=== PATIENT | male | born 1980 | race Asian ===

== ENCOUNTER 2020-03-26 22:28 | Emergency (ER) | payer MEDICAID ==
[~2020-03-26] VITALS: Ht 172.7 cm; Wt 69.9 kg
[2020-03-26 22:45] VITALS: BP 125/89
[2020-03-26] MEDS ORDERED: HYDROcodone/Acetamin 5/325 tab ORAL ONE (23:30)
[2020-03-27] MEDS ORDERED: NORCO 5-325 TA1 EAC1 ORAL (00:41)
[2020-03-27] MEDS ORDERED: IBUPROFEN600 M1 ORAL (00:41)
[2020-03-27 00:50] VITALS: BP 123/76
--- NOTE | 2020-03-27 03:37 | Emergency Room Report ---
History of Present Illness General Chief Complaint: Multiple Trauma/Fall Source: Patient Present Illness HPI 39-year-old male here with right foot pain. Patient says that he jumped off a 6 foot ledge and landed on his feet but says that he landed mostly on his right foot. Stuart immediate pain in his right heel and right ankle. Never fell or hit his head or had loss of consciousness. Denies back pain or focal numbness or weakness. Has not taken any medication for the pain since the incident happened about an hour prior to coming to the emergency department. Pain is located in the right heel and right ankle and does not otherwise radiate. Allergies: Coded Allergies: No Known Allergies (Unverified , 03/26/20) COVID-19 Screening Contact w/high risk pt: No Experienced COVID-19 symptoms?: No COVID-19 Testing performed SELF STORAGE MANAGER: No Nursing Documentation-[facility] Past Medical History: No Stated History Review of Systems All Other Systems: negative except mentioned in HPI Physical Exam Vital Signs Date Time Temp Pulse Resp B/P (MAP) Pulse Ox O2 Delivery O2 Flow Rate FiO2 03/26/20 22:38 98.2 93 20 122/81 (95) 99 Room Air Sp02 EP Interpretation: reviewed, normal General Appearance: no apparent distress, alert, non-toxic Head: normocephalic, atraumatic Eyes: bilateral eye normal inspection, bilateral eye PERRL ENT: hearing grossly normal, normal pharynx, no angioedema, normal voice Neck: full range of motion, supple/symm/no masses Respiratory: chest non-tender, lungs clear, normal breath sounds, speaking full sentences Cardiovascular #1: regular rate, rhythm, no edema Cardiovascular #2: 2+ carotid (R), 2+ carotid (L), 2+ radial (R), 2+ radial (L), 2+ dorsalis pedis (R), 2+ dorsalis pedis (L) Gastrointestinal: normal bowel sounds, non tender, soft, non-distended, no guarding, no rebound Rectal: deferred Genitourinary: normal inspection, no CVA tenderness Musculoskeletal: back normal, other - Severe tenderness on palpation of the right calcaneus and right lateral malleolus with moderate diffuse swelling of the right ankle. DP and PT pulses intact. Normal capillary refill of the right toes. No back pain Neurologic: alert, motor strength/tone normal, sensory intact, responsive, speech normal Psychiatric: judgement/insight normal, memory normal, mood/affect normal, no suicidal/homicidal ideation Lymphatic: no adenopathy Medical Decision Making Diagnostic Impression: Primary Impression: Calcaneus fracture, right Additional Impression: Fibula fracture ER Course X-ray right foot: Linear transverse calcaneal fracture X-ray right ankle: Nondisplaced distal fibular fracture Splint: Short-leg post mold and sugar tong splint placed on the right foot and right ankle. Patient was neurovascularly intact before and after the splint was placed 39-year-old male here with right foot pain after jumping off of a 6 foot ledge. Patient had no back pain whatsoever on palpation and range of motion. He had no focal numbness or weakness. Imaging of the right foot showed a calcaneal fracture as well as a distal fibular fracture. A splint was placed as described above and patient was neurovascular intact before and after. He was given crutches and instructions on how to use the crutches. Given a prescription for pain medication as well. He was given information to follow-up with orthopedic surgery. However patient said that he has an HMO with [facility] and will follow-up with his primary care provider and the orthopedic surgery team within his HMO. He was given very strict instructions to follow-up within the next 24 hours for further management. Told to come back to the emergency department if he has any worsening swelling, numbness, pain. He expressed understanding and was discharged. Last Vital Signs Date Time Temp Pulse Resp B/P (MAP) Pulse Ox O2 Delivery O2 Flow Rate FiO2 03/27/20 00:50 98.0 79 20 123/76 100 Room Air Disposition: HOME, SELF-CARE Condition: Stable Scripts Ibuprofen* (MOTRIN*) 600 Mg Tablet 600 MG ORAL Q6H PRN for FOR PAIN, #20 TAB 0 Refills Prov: Martir Moran M.D. 03/27/20 Hydrocodone Bit/Acetaminophen 5-325* (NORCO 5-325 TABLET*) 1 Each Tablet 1 TAB ORAL Q4H PRN for For Pain, #10 TAB Prov: Martir Moran M.D. 03/27/20 Referrals: NILESH MARQUEZ M.D. [facility]: 7am -10pm Wednesday - Wednesday 9am - 8pm Weekends and Holidays NO APPOINTMENT NEEDED [facility]: Wednesday - Wednesday APPOINTMENT NEEDED [facility] Open 24 hour /7 days a week by Appointment Only [address] [facility] [address] [address] Patient Instructions: Calcaneal Fracture Repair Martir Moran M.D. Mar 27, 2020 03:37
--- NOTE | 2020-03-27 17:15 | Diagnostic Imaging Report ---
Indication: Trauma Technique: 3 views foot Comparison: none Findings: There is a fracture of the calcaneus. This is minimally displaced. No other fractures. No dislocations. Impression: Positive for calcaneal fracture This agrees with the preliminary interpretation reported by the emergency room physician in the electronic medical record
--- NOTE | 2020-03-27 17:16 | Diagnostic Imaging Report ---
Indication: Trauma, fell from 6 feet Technique: 3 views of the right ankle Comparison: none Findings: There is a fracture of the calcaneus. This is displaced by approximately 8 mm no other acute fractures. No dislocations. Impression: Positive for calcaneal fracture
== END 2020-03-27 00:50 | disposition home or self-care (01) ==
LOC: EMR 23:01
DX: S92.001A Unspecified fracture of right calcaneus, initial encounter for closed fracture (principal); S82.491A Other fracture of shaft of right fibula, initial encounter for closed fracture; W17.89XA Other fall from one level to another, initial encounter; Y93.39 Activity, other involving climbing, rappelling and jumping off; Y92.9 Unspecified place or not applicable
CPT/HCPCS: 29515; 73610; 73630; Z7502; 99283